=== PATIENT | female | born 1980 | race Caucasian/White ===

== ENCOUNTER 2016-05-10 10:51 | Emergency (ER) | payer BC ==
[2016-05-10 12:49] VITALS: BP 110/70
--- NOTE | 2016-05-10 12:58 | UC ---
Throat Pain/Nasal Mario Alberto HPI - HPI Summary HPI Summary: complaint of nasal congestion and cough that started 2.5 weeks ago then 5 days ago she started to have pain in the right side of her head and face whixch has worsened cough is productive at times frequent headaches and bilateral ear pain denies fever and chills, shortness of breath has been taking normal saline ,dayquil ibuprofen with minimal relief - History of Current Complaint Chief Complaint: UC Stated Complaint: SINUS COMPLAINT Time Seen by Provider: 05/10/16 12:45 Hx Obtained From: Patient Hx Last Menstrual Period: 05/03/16 - Allergies/Home Medications Allergies/Adverse Reactions: Allergies Allergy/AdvReac Type Severity Reaction Status Date / Time Amoxicillin [From Augmentin] Allergy Intermediate Hives Verified 05/10/16 12:41 Clavulanic Acid Allergy Intermediate Hives Verified 05/10/16 12:41 [From Augmentin] Home Medications: Home Medications Ibuprofen [Ibuprofen 200 MG] 400 mg PO Q6H PRN 05/10/16 [History Confirmed 05/10] PMH/Surg Hx/FS Hx/Imm Hx Previously Healthy: Yes Endocrine History Of: Reports: Thyroid Disease Denies: Diabetes Cardiovascular History Of: Denies: Cardiac Disorders, Hypertension Respiratory History Of: Denies: COPD, Asthma GI/ History Of: Denies: Ulcer Psychological History Of: Reports: Anxiety, Depression - on meds - Surgical History Surgical History: None - Family History Known Family History: Negative: Cardiac Disease, Hypertension, Diabetes - Social History Lives: With Family Alcohol Use: Occasionally Substance Use Type: None Smoking Status (MU): Never Smoked Tobacco Have You Smoked in the Last Year: No - Immunization History Most Recent Influenza Vaccination: fall 2015 Most Recent Tetanus Shot: 08/29/14 Most Recent Pneumonia Vaccination: never Review of Systems Constitutional: Negative Skin: Negative Eyes: Negative ENT: Sore Throat, Ear Ache, Nasal Discharge Respiratory: Cough Cardiovascular: Negative Gastrointestinal: Negative Genitourinary: Negative Motor: Negative Neurovascular: Negative Musculoskeletal: Negative Neurological: Negative Psychological: Negative All Other Systems Reviewed And Are Negative: Yes Physical Exam Triage Information Reviewed: Yes Appearance: No Pain Distress, Well-Nourished Vital Signs: Initial Vital Signs Temp 97.6 F 05/10/16 12:44 Pulse 78 05/10/16 12:44 Resp 16 05/10/16 12:44 BP 110/70 05/10/16 12:44 Pulse Ox 100 05/10/16 12:44 Vital Signs Reviewed: Yes Eyes: Positive: Conjunctiva Clear ENT: Positive: Pharyngeal erythema, Nasal congestion, Nasal drainage, TM bulging , Other: - right sided maxillary sinus tenderness. Negative: TM red Neck: Positive: No Lymphadenopathy Respiratory: Positive: Lungs clear, Normal breath sounds, No respiratory distress Cardiovascular: Positive: RRR, No Murmur, Pulses Normal Abdomen Description: Positive: Nontender, Soft Bowel Sounds: Positive: Present Musculoskeletal: Positive: No Edema Neurological: Positive: Alert Psychological Exam: Normal Skin Exam: Normal Throat Pain/Nasal Course/Dx - Course Course Of Treatment: exam completed. will treat for sinusitis d/t length of illness , right sided maxillary sinus tenderness. will rx zithromax d/t patient request allergy to augmentin and doesn't want doxycycline or other antibiotics - Differential Dx/Diagnosis Differential Diagnosis/HQI/PQRI: Sinusitis Provider Diagnoses: sinusitis Discharge - Discharge Plan Condition: Stable Disposition: HOME Prescriptions: Azithromycin TAB* [Zithromax TAB (Z-NICHO)*] 0 mg PO .Z-NICHO INSTRUCTIONS #6 tab Pseudoephedrine HCL ER TAB* [Sudafed 12 Hour*] 120 mg PO BID #20 tab.er Patient Education Materials: Sinusitis (ED) Referrals: Danita Weaver MD [Primary Care Provider] - Additional Instructions: SINUSITIS What is Sinusitis? Sinusitis is inflammation or infection of the lining of the sinuses behind the bones in your cheeks or forehead. Sinusitis may occur following a common cold, flu, or other infection; allergies; a tooth infection that spreads to the sinuses; swimming in contaminated water; pressure changes in airplanes at high altitudes; violent sneezing or nose blowing or smoking or breathing other peoples smoke. Symptoms Might Include: Nasal Congestion Sneezing Watery eyes, eye irritation, or eye itching Headaches Pressure in the cheeks Wheezing Trouble smelling Sore throat and coughing may occur Treatment Recommendations: Take medicines as prescribed until completely gone. Drink plenty of fluids. Use saline nose spray to thin the mucous and help the sinuses drain. Use a vaporizer or humidifier. Apply warm compresses to the face or forehead several times a day for 10 to 20 minutes. Call Your Doctor or Return Here IF: Your pain increases during treatment. You develop a high temperature. You develop unusual swelling around the eyes. You have difficulty with your vision. You develop a severe headache, earache, or toothache. You develop increased fever or fever that does not respond to medication such as Tylenol?. You have difficulty breathing or catching your breath. You begin to have any other new symptoms that worry you.
== END 2016-05-10 13:22 | disposition home or self-care (01) ==
LOC: UCEAST 10:51
DX: J01.90 Acute sinusitis, unspecified (principal); B96.89 Other specified bacterial agents as the cause of diseases classified elsewhere; Z88.0 Allergy status to penicillin
CPT/HCPCS: 99212; G0463